=== PATIENT | female | born 1990 | race Caucasian/White ===

== ENCOUNTER 2017-06-02 15:16 | Outpatient (CLI) | payer OTHER | END 2017-06-02 15:17 | disposition home or self-care (01) | LOC: CTENTCT 15:16 | PROVIDERS: ATTEND Otolaryngology Plastic Surgery within the Head & Neck | DX: J32.9 Chronic sinusitis, unspecified (principal) | CPT/HCPCS: 70486 ==

== ENCOUNTER → 2018-12-04 | Day surgery (SDC) | payer OTHER ==
[~2018-12-04] MED LIST: Leucovorin Calcium 5 MG TAB PO SCH; METHOTREXATE SODIUM IV SCH; Ondansetron PF 4 MG/2 ML Vial SLOW IVP PRN; SODIUM CHLORIDE 0.9% IV SCH
[2018-12-04 12:29] LABS: #Basophils 0.1 thou/uL (0.0-0.2); #Eosinphils 0.2 thou/uL (0.0-0.7); #Lymphocytes 3.1 thou/uL (1.20-3.40); #Monocytes 0.8 thou/uL (0.11-0.59); #Neutrophils 8.1 thou/uL (1.40-6.50); %Basophils 0.6 % (0.0-1.0); %Eosinophils 1.4 % (0.0-10.0); %Lymphocytes 25.2 % (21.0-51.0); %Monocytes 6.8 % (0.0-10.0); Hemoglobin 13.6 g/dL (12.0-16.0); Mean Corpuscular HGB CONC 33.6 g/dL (32.0-36.0); Mean Corpuscular Hemoglobin 30.2 pg (27.0-31.0); Mean Corpuscular Volume 89.9 fL (78.0-98.0); Mean Platelet Volume 9.1 fL (7.4-10.4); Platelet Count 286 thou/uL (130-400); RBC Distribution Width 12.6 % (11.5-14.5); White Blood Cell (WBC) Count 12.3 thou/uL (4.8-10.8)
[2018-12-04 13:35] LABS: ALT (SGPT) 23 U/L (8-55); AST (SGOT) 17 U/L (5-34); Albumin 4.6 g/dL (3.5-5.0); Alkaline Phosphatase 56 U/L (40-150); Anion Gap 14 mmol/L (10-20); BUN (Urea Nitrogen) 9 mg/dL (7.0-18.7); Bilirubin, Total 0.6 mg/dL (0.2-1.2); Calc. Creatinine Clearance 0 mL/min (70-130); Carbon Dioxide 23 mmol/L (22-29); Chloride 106 mmol/L (98-107); Estimated GFR-MDRD Greater than 90; Globulin 3.1 g/dL (2.4-3.5); Glucose 85 mg/dL (70-105); Potassium 4.6 mmol/L (3.5-5.1); Protein, Total 7.7 g/dL (6.0-8.3); Sodium 138 mmol/L (136-145)
--- NOTE | 2018-12-04 18:36 | HP ---
CHIEF COMPLAINT: Interstitial ectopic . HISTORY OF PRESENT ILLNESS: This is a 28-year-old, G1, P0, at approximately 8 weeks 2 days gestation by last menstrual period, who initially presented at the end of October to the ER for spotting and pelvic cramping with a positive test. At that time, she had what appeared to be a pseudosac in her uterus or a gestational sac and was given warnings and diagnosed with a threatened . She followed up a week later, and at that time in my office, the patient was continuing to have spotting, passing small clots at times, and did no longer have a gestational sac in the uterus. She declined medical management at that time, and she followed up a week later and had a new finding on ultrasound with continued spotting and cramping of a sac growing what appeared to be in the cornua of the uterus, and it was suspected that the patient had an angular or a uterine anomaly. A week later, which was today, December 04, she arrived to my office. She was stable. Vital signs are within normal limits, and she had an ultrasound that showed a growing sac in the interstitium based on the myometrial mantle being less than 5 mm and there was no pole, no cardiac activity, consistent with a nonviable and most likely an interstitial . There is no free fluid on ultrasound, and the gestational sac is measuring approximately 2.5 x 2.5 cm. She denies any fever. She states there is a small amount of vaginal bleeding. She is not in severe pain. She has been taking tramadol p.r.n. at home for pain. REVIEW OF SYSTEMS: Negative except as noted in HPI. ALLERGIES: NO KNOWN DRUG ALLERGIES. MEDICATIONS: 1. Alprazolam 0.25 mg p.o. p.r.n. anxiety. 2. Escitalopram 10 mg p.o. daily. 3. Levocetirizine 5 mg p.o. daily. 4. Metformin ER 500 mg p.o. at bedtime. 5. Propranolol 20 mg p.o. b.i.d. 6. Tramadol 50 mg p.o. q.6 hours p.r.n. PAST MEDICAL HISTORY: Allergies, polycystic ovaries, migraines, asthma, ADHD, depression, anxiety, seasonal affective disorder. FAMILY HISTORY: Hypertension, hyperlipidemia, diabetes, breast cancer in maternal grandmother. SOCIAL HISTORY: Negative x3. PAST SURGICAL HISTORY: Sinus surgery and wisdom teeth. 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 No abnormal Paps. No STDs. OB HISTORY: G1, P0. PHYSICAL EXAMINATION: VITAL SIGNS: Blood pressure 117/76, pulse is 75, respirations 18, O2 saturation 95% on room air, temperature 97.7, weight is 224. GENERAL: No acute distress. Alert and oriented x3. CARDIAC: Regular rate and rhythm. LUNGS: Nonlabored breathing and clear. ABDOMEN: Soft, nontender, nondistended. EXTREMITIES: No edema, cyanosis, or clubbing. PELVIC: Deferred. LABORATORY DATA: hCG is 25,717. Creatinine 0.77, BUN 9, AST 17, ALT 23. CBC: White blood cells 12.3, hemoglobin 13.6, hematocrit 40.5, platelets 286. Blood type is A positive. Antibody screen negative. ASSESSMENT AND PLAN: A 28-year-old, G1, P0, at 8 weeks 2 days by last menstrual period with interstitial . I have discussed with the patient this is a nonviable . There is not a pole present. At this point, we should see a pole, and even if this were the case, this is not able to be completed to term as this would surely rupture and could be potentially life-threatening for the patient. She was explained options including the option of surgery versus the option of a trial of medical management with methotrexate. She does have a high beta which might decrease her chance of succeeding slightly. I still feel like her chances are around 75% of being able to successfully dissolve the with this treatment, and she would then avoid having a surgery where she could potentially lose her tube and also have an incision in the active part of the fundus that would require C-sections at 37 week in subsequent pregnancies and increase risk of rupture should the patient go into labor. This was discussed with the patient and her in detail. The risks of methotrexate were discussed. She has no contraindications. Her labs are normal, and the patient states she can be compliant with followup that we will use a multidose regimen and she will return on day 3 for beta and potentially for re-dosing if it does not decrease by 15%. Today, she will receive methotrexate 100 mg IV x1 and leucovorin 10 mg p.o. x1. Avoidances including avoiding folic acid, nonsteroidal anti-inflammatories, and sunlight were discussed with the patient as well as the side effects of methotrexate and the need to avoid for the next 3 months secondary to the teratogenicity of methotrexate. The patient and understand and wished to proceed. Job ID: [id number]
== END | disposition home or self-care (01) ==
LOC: SDC 12:00
PROVIDERS: ATTEND Student in an Organized Health Care Education/Training Program
DX: O00.80 Other ectopic pregnancy without intrauterine pregnancy (principal); G43.909 Migraine, unspecified, not intractable, without status migrainosus; J45.909 Unspecified asthma, uncomplicated; F32.9 Major depressive disorder, single episode, unspecified; F90.9 Attention-deficit hyperactivity disorder, unspecified type; E28.2 Polycystic ovarian syndrome; F41.9 Anxiety disorder, unspecified; Z53.8 Procedure and treatment not carried out for other reasons; Z3A.08 8 weeks gestation of pregnancy; Z79.84 Long term (current) use of oral hypoglycemic drugs; Z79.899 Other long term (current) drug therapy
CPT/HCPCS: 36415; 36416; 80053; 84702; 85025; 86850; 86900; 86901; J7050; J9250

== ENCOUNTER 2018-12-06 11:00 | Emergency (ER) | payer OTHER ==
[2018-12-06] MEDS ORDERED: Methotrexate Sodium/PF 100 MG in Syringe 0 ML IM SCH (12:45)
== END 2018-12-06 14:08 | disposition home or self-care (01) ==
LOC: ER/OP 11:00
DX: Z01.812 Encounter for preprocedural laboratory examination (principal)
CPT/HCPCS: 84702; 96372; 99281; J9250

== ENCOUNTER → 2018-12-12 | Day surgery (SDC) | payer OTHER ==
[2018-12-12 09:36] LABS: ALT (SGPT) 42 U/L (8-55); AST (SGOT) 26 U/L (5-34); Albumin 4.1 g/dL (3.5-5.0); Alkaline Phosphatase 50 U/L (40-150); Anion Gap 10 mmol/L (10-20); BUN (Urea Nitrogen) 8 mg/dL (7.0-18.7); Bilirubin, Total 0.4 mg/dL (0.2-1.2); Calc. Creatinine Clearance 0 mL/min (70-130); Calcium 9.6 mg/dL (7.8-10.44); Carbon Dioxide 25 mmol/L (22-29); Chloride 103 mmol/L (98-107); Estimated GFR-MDRD Greater than 90; Globulin 2.9 g/dL (2.4-3.5); Glucose 85 mg/dL (70-105); Potassium 4.4 mmol/L (3.5-5.1); Sodium 134 mmol/L (136-145)
== END ==
LOC: LAB 08:33
PROVIDERS: ATTEND Student in an Organized Health Care Education/Training Program
DX: O00.90 Unspecified ectopic pregnancy without intrauterine pregnancy (principal)
CPT/HCPCS: 80053; 84702

== ENCOUNTER 2019-05-03 07:46 | Outpatient (CLI) | payer OTHER ==
[2019-05-03] MEDS ORDERED: Gadobenate Dimeglumine 529 MG/1 ML (20ML VIAL) ONE (09:00)
--- NOTE | 2019-05-03 17:11 | MRI ---
MRI OF THE PELVIS WITHOUT AND WITH CONTRAST: History: 29-year-old female with mass seen on ultrasound at outside institution. Comparison: Report from pelvic ultrasound, 04-23-19. Technique: Multiplanar, multisequence MRI images were obtained of the pelvis without and with IV cont rast. FINDINGS: There is a 3.3 cm well circumscribed mass along the right aspect of the uterine fundus. This likely r epresents an intramural fibroid. The junctional zone of the uterus is normal in thickness. No nabothi an cysts are seen. There is no evidence for a bicornuate or septate uterus. There are multiple similar appearing follicles along the periphery of both ovaries. A trace amount of free fluid is seen in the pelvis. No pelvic adenopathy is seen. No marrow signal abnormality is present. IMPRESSION: 1. Uterine fibroid. 2. Similar appearing follicles along the periphery of the ovaries may be secondary to polycystic ovar quentin syndrome. POS: [facility]
== END 2019-05-03 07:47 | disposition home or self-care (01) ==
LOC: SCSMRI 07:46
PROVIDERS: ATTEND Student in an Organized Health Care Education/Training Program
DX: N85.8 Other specified noninflammatory disorders of uterus (principal); D25.9 Leiomyoma of uterus, unspecified; E28.2 Polycystic ovarian syndrome
CPT/HCPCS: 72197; A9577